=== PATIENT | female | born 1995 | race Caucasian/White ===

== ENCOUNTER 2017-01-03 20:13 | Emergency (ER) | payer MEDICAID ==
[2017-01-03] MEDS ORDERED: SULFAMETH/TRIMETH DS 800/160 MG TABLET PO STA (21:04)
[2017-01-03] MEDS ORDERED: IBUPROFEN 600 MG TABLET PO STA (21:04)
[2017-01-03] MEDS ORDERED: IBUPROFEN 600 MG TABLET PO ONE (21:05)
[2017-01-03] MEDS ORDERED: SULFAMETH/TRIMETH DS 800/160 MG TABLET PO ONE (21:05)
== END 2017-01-03 21:13 | disposition home or self-care (01) ==
DX: N30.00 Acute cystitis without hematuria (principal); R10.2 Pelvic and perineal pain; Z97.5 Presence of (intrauterine) contraceptive device; F17.200 Nicotine dependence, unspecified, uncomplicated
CPT/HCPCS: 81001; 81025; 87210; 87491; 87591; 99283; A9270

== ENCOUNTER 2017-02-26 09:45 | Emergency (ER) | payer MEDICAID ==
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
[2017-02-26 10:40] LABS: BILIRUBIN,URINE NEGATIVE (NEGATIVE)
[2017-02-26 10:46] LABS: BASOPHILS % (AUTO) 0.4 %; EOSINOPHILS # (AUTO) 0.1 10^3/uL (0.0-0.7); EOSINOPHILS % (AUTO) 0.8 %; HCT - HEMATOCRIT 36.5 % (37.0-47.0); HGB - HEMOGLOBIN 12.6 g/dL (12.0-16.0); LYMPHOCYTES # (AUTO) 1.8 10^3/uL (1.5-3.5); LYMPHOCYTES % (AUTO) 21.1 %; MEAN CORPUSCULAR HEMOGLOBIN 29.4 pg (27.0-31.0); MEAN CORPUSCULAR HGB CONC 34.6 g/dL (32.0-36.0); MEAN PLATELET VOLUME 8.4 fL (7.9-10.8); MONOCYTES # (AUTO) 0.6 10^3/uL (0.0-1.0); MONOCYTES % (AUTO) 7.5 %; NEUTROPHILS # (AUTO) 5.9 10^3/uL (1.5-6.6); NEUTROPHILS % (AUTO) 70.2 %; RED BLOOD COUNT 4.29 10^6/uL (4.20-5.40); RED CELL DISTRIBUTION WIDTH 14.3 % (12.0-15.0); UNCORRECTED WHITE BLOOD COUNT 8.4 x10^3/uL; WHITE BLOOD COUNT 8.4 x10^3/uL (4.8-10.8)
[2017-02-26 10:48] LABS: HCG UR QUAL NEGATIVE; UA w/ MICROSCOPIC CHARGE YES
[2017-02-26 11:04] LABS: WBC,URINE 0-3 /HPF (0-5)
[2017-02-26 11:05] LABS: UR CULTURE IF IND INDICATED
[2017-02-26 11:39] VITALS: BP 116/69
== END 2017-02-26 12:15 | disposition home or self-care (01) ==
LOC: ED 09:45
DX: N93.8 Other specified abnormal uterine and vaginal bleeding (principal); J45.909 Unspecified asthma, uncomplicated; F17.200 Nicotine dependence, unspecified, uncomplicated
CPT/HCPCS: 36415; 81001; 81003; 81025; 85025; 87086; 87491; 87591; 99283; 99284

== ENCOUNTER 2017-04-03 11:18 | Emergency (ER) | payer MEDICAID ==
[2017-04-03 11:29] VITALS: BP 120/88
[2017-04-03] MEDS ORDERED: TETANUS/DIPHTHERIA/PERTUSSIS 0.5 ML SYRINGE IM ONE ×2 (11:29→11:41)
[2017-04-03] MEDS ORDERED: LIDOCAINE 1% 2 ML VIAL ONE (11:44)
--- NOTE | 2017-04-03 12:14 | ED Physician Documentation ---
PD HPI UPPER EXT INJURY - Stated complaint Stated Complaint: FINGER LAC - Chief complaint Chief Complaint: Laceration - History obtained from History obtained from: Patient, Family - History of Present Illness Location: Right, Finger (5th) Type of injury: Laceration Where injury occurred: Home Timing - onset: Today Timing - duration: Minutes Timing - details: Abrupt onset, Still present Improved by: Rest, Immobilization Worsened by: Moving, Palpating Associated symptoms: No: Weakness, Numbness, Tingling, Swelling Contributing factors: No: Anticoagulated Similar symptoms before: Has not had sx before Recently seen: Not recently seen - Additonal information Additional information: 21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 Review of Systems Constitutional: denies: Fever Skin: reports: Laceration (s) Musculoskeletal: denies: Neck pain, Back pain Neurologic: denies: Generalized weakness, Focal weakness, Numbness PD PAST MEDICAL HISTORY - Past Medical History Past Medical History: Yes Respiratory: Asthma - Past Surgical History Past Surgical History: No - Present Medications Home Medications: Ambulatory Orders Medication Instructions Recorded Confirmed Albuterol Sulfate [Proair Hfa 8.5 gm IH QID #1 hfa.aer.ad 11/29/15 04/03/17 Inhaler] Norethindrone-Ethinyl Estrad 1 each PO DAILY #10 tablet 02/26/17 04/03/17 [Ovcon-35] - Allergies Allergies/Adverse Reactions: Allergies Allergy/AdvReac Type Severity Reaction Status Date / Time No Known Drug Allergies Allergy Verified 04/03/17 11:30 - Social History Does the pt smoke?: Yes Smoking Status: Current every day smoker Does the pt drink ETOH?: Yes Does the pt have substance abuse?: Yes - Immunizations Immunizations are current?: No Immunizations: TDAP >10years/unknown - POLST Patient has POLST: No PD ED PE NORMAL - Vitals Vital signs reviewed: Yes (hypertensive) - General General: No acute distress, Well developed/nourished - HEENT HEENT: Atraumatic, PERRL - Respiratory Respiratory: No respiratory distress - Derm Derm: Normal color, Warm and dry, No rash - Extremities Extremities: No deformity, No edema, Other (There is a 2cm laceration to the proximal phlagne ulnar surface without involvment of deeper structures and distal n/v is intact. ) - Neuro Neuro: No motor deficit, No sensory deficit - Psych Psych: Normal mood, Normal affect Results - Vitals Vitals: Vital Signs - 24 hr 04/03/17 11:24 Temperature 36.6 C Heart Rate 69 Respiratory 16 Rate Blood Pressure 120/88 H O2 Saturation 98 Oxygen O2 Source Room air Procedures - Laceration (location) fifth finger Length in cm: 2 Wound type: Linear, Clean Neurovascular status: Sensory intact, Motor intact, Vascular intact Tendon involvement: Tendon intact Anesthesia: Lidocaine 1% Wound Preparation: Hibiclens, Irrigated copiously NS, Wound explored, To the base Skin layer closure: Nylon, Interrupted, Size #-0 - enter number (5-0), Sutures - enter # (3) Other: Patient tolerated well, No complications, Neurovascular intact, Dressing applied, Tetanus booster given Complexity: Simple PD MEDICAL DECISION MAKING - ED course Complexity details: reviewed results, re-evaluated patient, considered differential, d/w patient, d/w family ED course: 21 y/o female with a finger laceration from a can lid is sutured and she is given a tetanus booster. Departure - Departure Disposition: 01 Home, Self Care Clinical Impression: Finger laceration Qualifiers: Encounter type: initial encounter Qualified Code(s): S61.219A - Laceration without foreign body of unspecified finger without damage to nail, initial encounter Condition: Stable Instructions: ED Laceration Hand Follow-Up: [facility] [Provider Group]
== END 2017-04-03 12:23 | disposition home or self-care (01) ==
LOC: ED 11:18
DX: S61.216A Laceration without foreign body of right little finger without damage to nail, initial encounter (principal); W26.8XXA Contact with other sharp object(s), not elsewhere classified, initial encounter; Y93.E9 Activity, other interior property and clothing maintenance; Y92.019 Unspecified place in single-family (private) house as the place of occurrence of the external cause; J45.909 Unspecified asthma, uncomplicated; F17.200 Nicotine dependence, unspecified, uncomplicated; Z23 Encounter for immunization
CPT/HCPCS: 12001; 90471; 99282; 99283

== ENCOUNTER 2017-07-23 13:52 | Emergency (ER) | payer MEDICAID ==
[2017-07-23 14:00] VITALS: BP 141/90
--- NOTE | 2017-07-23 15:22 | ED Physician Documentation ---
PD HPI FEMALE - Stated complaint Stated Complaint: FEM - Chief complaint Chief Complaint: General - History obtained from History obtained from: Patient, Friend - History of Present Illness Timing - onset: Yesterday Timing - duration: Days (1) Timing - details: Abrupt onset, Still present Associated symptoms: Other (suspects retained tampon) Contributing factors: Sexually active, Other (on menses) Similar symptoms before: Has not had sx before Recently seen: Not recently seen - Additional information Additional information: 21-year-old female is on her menses and she did have intercourse and does not remember ever removing the tampon. She is worried about a retained tampon today.She is not otherwise having symptoms. Review of Systems Constitutional: denies: Fever Respiratory: denies: Cough GI: denies: Vomiting : denies: Dysuria, Frequency PD PAST MEDICAL HISTORY - Past Medical History Respiratory: Asthma - Past Surgical History Past Surgical History: No - Allergies Allergies/Adverse Reactions: Allergies Allergy/AdvReac Type Severity Reaction Status Date / Time No Known Drug Allergies Allergy Verified 07/23/17 13:58 - Social History Does the pt smoke?: Yes Smoking Status: Current every day smoker Does the pt drink ETOH?: Yes Does the pt have substance abuse?: Yes - Immunizations Immunizations are current?: No Immunizations: TDAP >10years/unknown - POLST Patient has POLST: No PD ED PE NORMAL - Vitals Vital signs reviewed: Yes - General General: Alert and oriented X 3, No acute distress, Well developed/nourished - HEENT HEENT: Atraumatic - Respiratory Respiratory: No respiratory distress - Female Female : Critical Care Physician present (Rebecca), Other (menstral blood is present in the vault. The area is examined and there is no evidence of retained tampon. ) - Derm Derm: Normal color, Warm and dry, No rash - Extremities Extremities: No deformity, No edema - Neuro Neuro: No motor deficit, No sensory deficit - Psych Psych: Normal mood, Normal affect Results - Vitals Vitals: Vital Signs - 24 hr 07/23/17 13:54 Temperature 36.2 C L Heart Rate 86 Respiratory 18 Rate Blood Pressure 141/90 H O2 Saturation 99 Oxygen O2 Source Room air PD MEDICAL DECISION MAKING - ED course Complexity details: considered differential, d/w patient ED course: 21-year-old female who thought that she might have a retained tampon does not have retained tampon. She is otherwise asymptomatic. Departure - Departure Disposition: 01 Home, Self Care Clinical Impression: (Ruled Out): Retained tampon Condition: Stable Instructions: Tampons Sanitary Pads Teen Follow-Up: [facility] [Provider Group]
== END 2017-07-23 15:36 | disposition home or self-care (01) ==
LOC: ED 13:52
DX: Z71.1 Person with feared health complaint in whom no diagnosis is made (principal)
CPT/HCPCS: 99282; 99283

== ENCOUNTER 2017-12-23 17:25 | Emergency (ER) | payer MEDICAID ==
--- NOTE | 2017-12-23 19:36 | ED Physician Documentation ---
PD HPI SKIN - Stated complaint Stated Complaint: LUMP - Chief complaint Chief Complaint: General - History obtained from History obtained from: Patient - History of Present Illness Timing - duration: Days Timing - details: Gradual onset, Waxing and waning Location: Other (rectal area pain with BM and wiping. Pain today with sitting as well. No abd pain.) Quality / character: Painful Associated symptoms: No: Fever, Myalgias, Abd pain, N/V/D Similar symptoms before: Has not had sx before Recently seen: Not recently seen Review of Systems Constitutional: denies: Fever, Chills GI: denies: Abdominal Pain, Nausea, Vomiting, Constipation, Diarrhea : denies: Dysuria, Frequency PD PAST MEDICAL HISTORY - Past Medical History Respiratory: Asthma - Past Surgical History Past Surgical History: No - Present Medications Home Medications: Ambulatory Orders Medication Instructions Recorded Confirmed Docusate Sodium 100 mg PO DAILY #30 capsule 12/23/17 Hydrocortisone Acetate [Anucort-Hc] 25 mg RC DAILY #5 supp.rect 12/23/17 Tramadol HCl 50 mg PO Q6H PRN #15 tablet 12/23/17 - Allergies Allergies/Adverse Reactions: Allergies Allergy/AdvReac Type Severity Reaction Status Date / Time No Known Drug Allergies Allergy Verified 12/23/17 17:41 - Social History Does the pt smoke?: Yes Smoking Status: Current every day smoker Does the pt drink ETOH?: Yes Does the pt have substance abuse?: Yes - Immunizations Immunizations are current?: No Immunizations: TDAP >10years/unknown - POLST Patient has POLST: No PD ED PE NORMAL - Vitals Vital signs reviewed: Yes - General General: Alert and oriented X 3, No acute distress, Well developed/nourished - Abdomen Abdomen: Soft, Non tender - Female Female : Deferred - Rectal Rectal: Other (nurse in room as well; there are some nonthrombosed external hemorrhoids and then some swelling just at anal verge c/w some internal hemorrhoids too. No perirectal abscess nor swelling/tenderness. ) - Back Back: No CVA TTP - Derm Derm: Normal color, Warm and dry Results - Vitals Vitals: Oxygen O2 Source Room air PD MEDICAL DECISION MAKING - ED course Complexity details: considered differential, d/w patient Departure - Departure Disposition: 01 Home, Self Care Clinical Impression: Inflamed internal hemorrhoid Condition: Stable Record reviewed to determine appropriate education?: Yes Instructions: ANUSOL Suppositories, ED Hemorrhoids Prescriptions: Docusate Sodium 100 mg PO DAILY #30 capsule Hydrocortisone Acetate [Anucort-Hc] 25 mg RC DAILY #5 supp.rect Tramadol HCl 50 mg PO Q6H PRN #15 tablet PRN Reason: Pain Comments: Drink lots of fluids. Use daily stool softener to keep things soft and less pressure on the hemorrhoids. Anusol rectal suppository daily for 5 days for treatment of the hemorrhoid. Use Tylenol or ibuprofen if needed for pain. Add tramadol if needed. Recheck if not improved over the next several days. Discharge Date/Time: 12/23/17 20:06
[2017-12-23] MEDS ORDERED: HYDROcod/ACETAM 5/325 MG TABLET PO STA (19:50)
[2017-12-23] MEDS ORDERED: DOCUSATE SODIUM 100 MG CAPSULE PO STA (19:50)
[2017-12-23] MEDS ORDERED: HYDROCORTISONE 25 MG SUPPOSITORY PR STA (19:50)
[2017-12-23 20:06] VITALS: BP 139/86
== END 2017-12-23 20:06 | disposition home or self-care (01) ==
LOC: ED 17:25
DX: K64.8 Other hemorrhoids (principal); F17.200 Nicotine dependence, unspecified, uncomplicated
CPT/HCPCS: 99283; A9270; J3490

== ENCOUNTER 2018-02-21 03:04 | Outpatient (CLI) | payer MEDICAID | END 2018-02-21 03:05 | disposition critical access hospital (66) | LOC: EMS 03:04 | PROVIDERS: ATTEND Surgery | DX: R51 Headache (principal); M54.9 Dorsalgia, unspecified; R07.9 Chest pain, unspecified; S10.93XA Contusion of unspecified part of neck, initial encounter; Y04.2XXA Assault by strike against or bumped into by another person, initial encounter; Y92.89 Other specified places as the place of occurrence of the external cause | CPT/HCPCS: A0425; A0429 ==

== ENCOUNTER 2018-02-21 03:39 | Emergency (ER) | payer MEDICAID ==
[2018-02-21 04:13] LABS: HCG UR QUAL NEGATIVE
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
--- NOTE | 2018-02-21 04:45 | CT Preliminary Report ---
Exam: CT HEAD W/O IMPRESSION: 1. No acute intracranial process. 2. Mild right frontal scalp swelling without calvarial fracture. [facility] SITE ID: [id number]
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
--- NOTE | 2018-02-21 04:54 | CT Preliminary Report ---
Exam: CT CERVICAL SPINE W/O IMPRESSION: Normal cervical spine CT. [facility] SITE ID: [id number]
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
[2018-02-21 05:48] VITALS: BP 133/73
== END 2018-02-21 05:48 | disposition home or self-care (01) ==
LOC: EDUNIT# → ED 03:39
DX: J45.909 Unspecified asthma, uncomplicated (principal); F17.200 Nicotine dependence, unspecified, uncomplicated; S10.93XA Contusion of unspecified part of neck, initial encounter; Y04.2XXA Assault by strike against or bumped into by another person, initial encounter; Y92.488 Other paved roadways as the place of occurrence of the external cause
CPT/HCPCS: 70450; 72125; 81025; 99283; 99284

== ENCOUNTER 2018-09-18 18:41 | Emergency (ER) | payer MEDICAID ==
[2018-09-18 19:31] LABS: BASOPHILS % (AUTO) 0.3 %; EOSINOPHILS % (AUTO) 0.2 %; HGB - HEMOGLOBIN 12.9 g/dL (12.0-16.0); LYMPHOCYTES # (AUTO) 1.6 10^3/uL (1.5-3.5); LYMPHOCYTES % (AUTO) 12.6 %; MEAN CORPUSCULAR HEMOGLOBIN 31.5 pg (27.0-31.0); MEAN CORPUSCULAR VOLUME 89.9 fL (81.0-99.0); MONOCYTES % (AUTO) 8.3 %; NEUTROPHILS # (AUTO) 9.8 10^3/uL (1.5-6.6); NEUTROPHILS % (AUTO) 78.6 %; PLT - PLATELET COUNT 320 10^3/uL (130-450); RED BLOOD COUNT 4.11 10^6/uL (4.20-5.40); RED CELL DISTRIBUTION WIDTH 12.4 % (12.0-15.0); WHITE BLOOD COUNT 12.5 x10^3/uL (4.8-10.8)
[2018-09-18 19:46] LABS: ALBUMIN 4.4 g/dL (3.2-5.5); ALBUMIN/GLOBULIN RATIO 0.8 (1.0-2.2); BILIRUBIN,TOTAL 0.7 mg/dL (0.2-1.0); CALCIUM 9.1 mg/dL (8.5-10.3); CREATININE 0.8 mg/dL (0.4-1.0); TOTAL PROTEIN 9.6 g/dL (6.7-8.2)
[2018-09-18 21:10] VITALS: BP 144/108
[2018-09-18 21:14] LABS: BILIRUBIN,URINE NEGATIVE (NEGATIVE); GLUCOSE, URINE (UA) NEGATIVE (NEGATIVE); KETONES,URINE (UA) >=80 mg/dL (NEGATIVE); LEUKOCYTE ESTERASE, URINE TRACE (NEGATIVE); NITRITE,URINE POSITIVE (NEGATIVE); OCCULT BLOOD,URINE MODERATE (NEGATIVE); PROTEIN,URINE TRACE mg/dL (NEGATIVE); UROBILINOGEN,URINE 1 (NORMAL) E.U./dL (NORMAL)
[2018-09-18 21:16] LABS: CLARITY,URINE HAZY (CLEAR); HCG UR QUAL NEGATIVE
[2018-09-18 21:25] LABS: BACTERIA,URINE Many /HPF (None Seen); RBC,URINE 0-5 /HPF (0-5); SQUAMOUS EPITHELIAL CELL,UR MOD Squamous (<= Few)
[2018-09-18] MEDS ORDERED: cefTRIAXone 1 GM VIAL IVP STA (21:29)
--- NOTE | 2018-09-18 21:32 | ED Physician Documentation ---
PD HPI ABD PAIN - Stated complaint Stated Complaint: SIDE/BACK PX - Chief complaint Chief Complaint: Abd Pain - History obtained from History obtained from: Patient - History of Present Illness Timing - onset: How many weeks ago (1) Timing - duration: Weeks (1) Timing - details: Gradual onset Pain level max: 0 Pain level now: 0 Quality: No: Cramping, Aching, Sharp, Dull, Stabbing, Throbbing, Indigestion, Fullness/distended, Pain Location: RUQ, Other (R flank) Improved by: Other (nothing) Worsened by: Other (nothing) Associated symptoms: Nausea, Constipation, Dysuria. No: Fever, Vomiting, Hematemesis, Diarrhea, Melena, Hematochezia, Hematuria, Chest pain, Dizzy, Near syncope / syncope, Vaginal bleeding, Vaginal dc Similar symptoms before: Has not had sx before Recently seen: Not recently seen Review of Systems Ten Systems: 10 systems reviewed and negative Constitutional: denies: Fever, Chills Ears: denies: Ear pain Nose: denies: Rhinorrhea / runny nose, Congestion Cardiac: denies: Chest pain / pressure Respiratory: denies: Cough GI: denies: Abdominal Pain, Nausea, Vomiting, Diarrhea : reports: Dysuria, Frequency, Hesitancy. 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 - Present Medications Home Medications: Ambulatory Orders Medication Instructions Recorded Confirmed Albuterol 2.5 mg INH Q4H PRN 02/21/18 02/21/18 Cefdinir 300 mg PO BID #20 capsule 09/18/18 Ibuprofen [Motrin] 800 mg PO Q8H PRN #30 tablet 09/18/18 - Allergies Allergies/Adverse Reactions: Allergies Allergy/AdvReac Type Severity Reaction Status Date / Time No Known Drug Allergies Allergy Verified 09/18/18 18:47 - Social History Does the pt smoke?: Yes Smoking Status: Current every day smoker Does the pt drink ETOH?: Yes Does the pt have substance abuse?: No Substance Use and Type: Marijuana - Immunizations Immunizations are current?: Yes Immunizations: TDAP current <10years - POLST Patient has POLST: No PD ED PE NORMAL - Vitals Vital signs reviewed: Yes - General General: Alert and oriented X 3, No acute distress - HEENT HEENT: Moist mucous membranes - Neck Neck: Supple, no meningeal sign - Cardiac Cardiac: RRR, Strong equal pulses - Respiratory Respiratory: No respiratory distress, Clear bilaterally - Abdomen Abdomen: Soft, Other (TTP over the RUQ and R flank.) - Back Back: No spinal TTP, Other (R CVAT) - Derm Derm: Warm and dry, No rash - Extremities Extremities: No edema, No calf tenderness / cord - Neuro Neuro: Alert and oriented X 3 - Psych Psych: Normal mood, Normal affect Results - Vitals Vitals: Vital Signs - 24 hr 09/18/18 09/18/18 09/18/18 18:44 19:52 21:09 Temperature 36.4 C L Heart Rate 137 H 107 H 110 H Respiratory 20 15 Rate Blood Pressure 144/61 H 144/108 H O2 Saturation 100 99 100 Oxygen O2 Source Room air - Labs Labs: Laboratory Tests 09/18/18 09/18/18 09/18/18 19:20 19:20 21:00 WBC 12.5 H RBC 4.11 L Hgb 12.9 Hct 36.9 L MCV 89.9 MCH 31.5 H MCHC 35.0 RDW 12.4 Plt Count 320 MPV 7.0 L Neut # (Auto) 9.8 H Lymph # (Auto) 1.6 [place] # (Auto) 1.0 Eos # (Auto) 0.0 Baso # (Auto) 0.0 Absolute Nucleated RBC 0.00 Nucleated RBC % 0.0 Sodium 135 Potassium 2.8 L Chloride 93 L Carbon Dioxide 30 Anion Gap 12.0 BUN 7 Creatinine 0.8 Estimated GFR (MDRD) 91 Glucose 95 Calcium 9.1 Total Bilirubin 0.7 AST 19 ALT 24 Alkaline Phosphatase 70 Total Protein 9.6 H Albumin 4.4 Globulin 5.2 H Albumin/Globulin Ratio 0.8 L Lipase 17 L Urine Color YELLOW Urine Clarity HAZY Urine pH 8.0 H Ur Specific [place] 1.020 Urine Protein TRACE Urine Glucose (UA) NEGATIVE Urine Ketones >=80 H Urine Occult Blood MODERATE H Urine Nitrite POSITIVE H Urine Bilirubin NEGATIVE Urine Urobilinogen 1 (NORMAL) Ur Leukocyte Esterase TRACE H Urine RBC 0-5 Urine WBC >25 H Ur Squamous Epith Cells MOD Squamous H Urine Bacteria Many H Ur Microscopic Review INDICATED Urine Culture Comments NOT INDICATED Urine HCG, Qual NEGATIVE - Rads (name of study) RUQ US Radiology: Prelim report reviewed, EMP read contemporaneously, See rad report (normal RUQ US) PD MEDICAL DECISION MAKING - ED course Complexity details: reviewed results, re-evaluated patient, considered differential, d/w patient ED course: 23 year old female with pyelonephritis. given rocephin and toradol. will place on cefdinir for home. Normal right upper quadrant ultrasound. Patient is well- appearing, nontoxic. Afebrile. Patient counseled regarding signs and symptoms for which I believe and urgent re-evaluation would be necessary. Patient with good understanding of and agreement to plan and is comfortable going home at this time This document was made in part using voice recognition software. While efforts are made to proofread this document, sound alike and grammatical errors may occur. Departure - Departure Disposition: 01 Home, Self Care Clinical Impression: Pyelonephritis Condition: Good Instructions: ED Kidney Infec Female Follow-Up: your,doctor in 3 days for recheck [Other] Prescriptions: Cefdinir 300 mg PO BID #20 capsule Ibuprofen [Motrin] 800 mg PO Q8H PRN #30 tablet PRN Reason: PAIN &/OR FEVER Comments: Take all antibiotics until gone. Return if you worsen. This should improve over the next few days.
--- NOTE | 2018-09-18 21:34 | Ultrasound Report ---
Reason: R upper abd pain Procedure Date: 09/18/2018 Accession Number: [id number] / [id number] Procedure: US - Abdomen Limited CPT Code: FULL RESULT: EXAM: ABDOMEN ULTRASOUND LIMITED, RUQ EXAM DATE: 09/18/2018 08:52 PM. CLINICAL HISTORY: R upper abd pain. COMPARISON: None. TECHNIQUE: Real-time scanning was performed with static images obtained. FINDINGS: Liver: Normal in size and echotexture. 14 cm. Main portal vein flow: Hepatopetal. Gallbladder: Normal. No stones, wall thickening, or sonographic Robles's sign. Biliary System: CBD measures 2.1 mm. No intrahepatic or extrahepatic ductal dilatation. Right kidney: 12.1 cm unremarkable IMPRESSION: Normal. No cholelithiasis or cholecystitis. RADIA
[2018-09-18] MEDS ORDERED: LIDOCAINE 1% 2 ML VIAL SUBQ ONE (21:37)
[2018-09-18] MEDS ORDERED: cefTRIAXone 1 GM VIAL IM STA (21:37)
[2018-09-18] MEDS ORDERED: KETOROLAC 60 MG/2 ML VIAL IM STA (21:37)
== END 2018-09-18 22:08 | disposition home or self-care (01) ==
LOC: ED 18:41
DX: N12 Tubulo-interstitial nephritis, not specified as acute or chronic (principal); F17.200 Nicotine dependence, unspecified, uncomplicated
CPT/HCPCS: 36415; 76705; 80053; 81001; 81003; 81025; 83690; 85025; 87086; 96372; 99283; 99284

== ENCOUNTER 2018-12-03 08:00 | Outpatient (CLI) | payer MEDICAID | END 2018-12-03 23:59 | disposition home or self-care (01) | LOC: LAB.R 08:00 | PROVIDERS: ATTEND Nurse Practitioner Obstetrics & Gynecology | DX: Z11.3 Encounter for screening for infections with a predominantly sexual mode of transmission (principal) | CPT/HCPCS: 87491; 87591 ==

== ENCOUNTER 2018-12-04 12:16 | Outpatient (CLI) | payer MEDICAID ==
[2018-12-05 13:02] LABS: HEPATITIS C ANTIBODY NON-REACTIVE (NON-REACTIVE)
[2018-12-05 14:12] LABS: HIV AG/AB 4TH GEN NON-REACTIVE (NON-REACTIVE)
[2018-12-06 13:21] LABS: HSV 2 IGG TYPE SPECIFIC AB <0.90 index
== END 2018-12-04 12:17 | disposition home or self-care (01) ==
LOC: LAB 12:16
PROVIDERS: ATTEND Nurse Practitioner Obstetrics & Gynecology
DX: Z11.3 Encounter for screening for infections with a predominantly sexual mode of transmission (principal)
CPT/HCPCS: 36415; 81599; 86317; 86592; 86695; 86696; 86803; 87389

== ENCOUNTER 2019-01-12 16:19 | Outpatient (CLI) | payer MEDICAID | END 2019-01-12 16:20 | disposition home or self-care (01) | LOC: LAB 16:19 | PROVIDERS: ATTEND Registered Nurse | DX: O46.91 Antepartum hemorrhage, unspecified, first trimester (principal) | CPT/HCPCS: 36415; 84702; 86900; 86901 ==

== ENCOUNTER 2023-01-02 23:09 | Emergency (ER) | payer SELFPAY ==
--- NOTE | 2023-01-03 00:16 | ED Physician Documentation ---
History of Present Illness - Stated complaint Stated Complaint: SWOLLEN FEET - Chief complaint Chief Complaint: Cardiac - History obtained from History obtained from: Patient - Additonal information Additional information: HPI from patient. she c/o bilateral LE edema for 1-2 weeks. No inciting event nor circumstances. There are no apparent exacerbating nor ameliorating factors. She denies h/o similar symptoms in the past. Denies chest pain, denies fever, denies dyspnea. No recent long car trips nor plane travel. Patient presents with a friend who is in adjacent bed registered as ED patient for unrelated c/o Review of Systems Constitutional: denies: Fever, Chills, Sweats Cardiac: reports: Pedal edema. 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 - Present Medications Home Medications: Ambulatory Orders Medication Instructions Recorded Confirmed Albuterol 2.5 mg INH Q4H PRN 02/21/18 02/21/18 - Allergies Allergies/Adverse Reactions: Allergies Allergy/AdvReac Type Severity Reaction Status Date / Time No Known Drug Allergies Allergy Verified 01/02/23 23:26 - Social History Does the pt smoke?: Yes Smoking Status: Current every day smoker Does the pt drink ETOH?: Yes Does the pt have substance abuse?: No - Immunizations Immunizations are current?: No Immunizations: TDAP current <10years - POLST Patient has POLST: No PD ED PE NORMAL - Vitals Vital signs reviewed: Yes - General General: Alert and oriented X 3, No acute distress, Well developed/nourished PD ED PE EXPANDED - Extremities Extremities: Pedal edema bilateral (1+ BLE pitting edema at ankles and feet, symmetric. LTS intact in both feet and strong DP/PT pulses, brisk capillary refill in toes bilaterally) Results - Vitals Vitals: Oxygen O2 Source Room air - Rads (name of study) BLE venous doppler US Relevant Findings:: Prelim report reviewed, See rad report PD Medical Decision Making - ED course Complexity details: reviewed results, re-evaluated patient, considered meka carlsonzach, d/w patient ED course: Unremarkable BLE US; specifically, no evidence of DVT. Cause of her peripheral edema is not apparent at this time. I advised her that she might benefit from further testing but that at this time, such testing would be appropriate for outpatient setting. Along these lines, I advised her to follow up with PMD , next available appointment. I advised her to try to keep her legs elevated when at rest during the day, to minimize salt intake, and to consider OTC compression socks. Return precautions discussed. Departure - Departure Disposition: Home, Self Care Clinical Impression: Peripheral edema Condition: Good Instructions: ED Edema Legs Bilateral Comments: An ultrasound was performed tonight on your legs and these do not show any evidence of the cause of the swelling. Specifically, they do not show any evidence of a deep venous thrombosis (DVT, or blood clot). You need to follow-up with an outpatient primary care provider for further testing. Contact your insurance carrier to ask about options for local primary care providers. Once you have this information, contact your primary care provider and make the next available appointment. In the meantime, as we discussed, keeping your legs elevated when at rest can help reduce the amount of swelling. Also, there are many different brands of compression socks available [id number] at most pharmacies. Reducing or eliminating salt from your diet as much as possible can also reduce the swelling of the legs. Certainly, if you worsen in any way, you can return to the emergency department for reevaluation. Discharge Date/Time: 01/03/23 02:20
--- NOTE | 2023-01-03 01:35 | Ultrasound Report ---
PROCEDURE: Duplex Ext Veins Bilateral INDICATIONS: Atraumatic bilateral lower extremity swelling TECHNIQUE: Real-time imaging, as well as color and pulse Doppler interrogation, were performed of the deep veins of both legs from the inguinal ligament to the popliteal fossa. COMPARISON: None. FINDINGS: The deep veins are normally compressible, and free of intraluminal thrombus. Color and pu lse Doppler demonstrate normal phasic intravascular flow. There is normal augmentation response to d istal compression maneuver. IMPRESSION: 1. No evidence of deep venous thrombosis in the right or left lower extremity. Reviewed by: Cristo Jackson MD on 01/03/2023 1:33 AM PDT Approved by: Cristo Jackson MD on 01/03/2023 1:33 AM PDT Station ID: [id number]
[2023-01-03 02:20] VITALS: BP 112/70
== END 2023-01-03 02:20 | disposition home or self-care (01) ==
LOC: ED 23:09
DX: R60.9 Edema, unspecified (principal); F17.200 Nicotine dependence, unspecified, uncomplicated
CPT/HCPCS: 93970; 99283; 99284

== ENCOUNTER 2023-02-02 19:47 | Emergency (ER) | payer MEDICAID, OTHER ==
[2023-02-02 20:18] LABS: RAPID STREP SCREEN Negative (Negative)
[2023-02-02] MEDS ORDERED: DEXAMETHASONE 10 MG/ML VIAL PO STA (21:42)
[2023-02-02] MEDS ORDERED: PENICILLIN VK 250 MG TABLET PO STA (21:42)
[2023-02-02] MEDS ORDERED: CHERRY SYRUP 10 ML UDC PO ONE (21:42)
[2023-02-02] MEDS ORDERED: IBUPROFEN 800 MG TABLET PO STA (21:42)
--- NOTE | 2023-02-02 21:48 | ED Physician Documentation ---
History of Present Illness - Stated complaint Stated Complaint: THROAT PX - Chief complaint Chief Complaint: Heent - History obtained from History obtained from: Patient - History of Present Illness Timing: How many days ago (2) Pain level max: 8 Pain level now: 8 - Additonal information Additional information: 27-year-old female presents to the emergency department for sore throat for the past 2 days. Has had subjective fever and chills. Mild dry cough. No nausea or vomiting. Denies any possibility of . Worse with eating and drinking, nothing makes it better. 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 - Present Medications Home Medications: Ambulatory Orders Medication Instructions Recorded Confirmed Ibuprofen [Motrin] 800 mg PO Q8H PRN #30 tablet 02/02/23 Penicillin V Potassium 500 mg PO Q6HR #40 tablet 02/02/23 predniSONE [Deltasone] 40 mg PO DAILY #10 tablet 02/02/23 - Allergies Allergies/Adverse Reactions: Allergies Allergy/AdvReac Type Severity Reaction Status Date / Time No Known Drug Allergies Allergy Verified 02/02/23 19:59 - Social History Does the pt smoke?: Yes Smoking Status: Current every day smoker Does the pt drink ETOH?: Yes Does the pt have substance abuse?: No - Immunizations Immunizations are current?: No Immunizations: TDAP current <10years - POLST Patient has POLST: No PD ED PE NORMAL - Vitals Vital signs reviewed: Yes - General General: Alert and oriented X 3, No acute distress - HEENT HEENT: Ears normal, Moist mucous membranes, Other (Posterior oropharyngeal erythema and tonsillar exudates bilaterally. Uvula midline. Normal phonation. No trismus.) - Neck Neck: Supple, no meningeal sign, Other (Shotty anterior lymphadenopathy) - Cardiac Cardiac: RRR, Strong equal pulses - Respiratory Respiratory: No respiratory distress, Clear bilaterally - Abdomen Abdomen: Soft, Non tender, Non distended - Derm Derm: Warm and dry, No rash - Neuro Neuro: Alert and oriented X 3 - Psych Psych: Normal mood, Normal affect Results - Vitals Vitals: Vital Signs - 24 hr 02/02/23 02/02/23 19:51 21:59 Temperature 37.2 C 37.0 C Heart Rate 112 H 88 Respiratory 16 16 Rate Blood Pressure 119/83 H 122/80 O2 Saturation 100 100 Oxygen O2 Source Room air - Labs Labs: Laboratory Tests 02/02/23 19:50 Group A Strep Rapid Negative PD Medical Decision Making - ED course Complexity details: considered differential, d/w patient ED course: Patient is well-appearing, nontoxic. Afebrile. No stridor. No respiratory distress. Rapid strep is negative, but exam is consistent with strep pharyngitis, therefore we will treat the patient with antibiotics. Given dexamethasone as well. Encourage p.o. hydration. Encourage close follow-up with her doctor. No evidence of peritonsillar abscess or retropharyngeal abscess at this time. Patient counseled regarding signs and symptoms for which I believe and urgent re-evaluation would be necessary. Patient with good understanding of and agreement to plan and is comfortable going home at this time This document was made in part using voice recognition software. While efforts are made to proofread this document, sound alike and grammatical errors may occur. Departure - Departure Disposition: 01 Home, Self Care Clinical Impression: Pharyngitis Qualifiers: Pharyngitis/tonsillitis etiology: unspecified etiology Qualified Code(s): J02.9 - Acute pharyngitis, unspecified Condition: Good Instructions: ED Strep Pharyngitis Poss Follow-Up: your,doctor in 3-4 days if not better [Other] Prescriptions: Penicillin V Potassium 500 mg PO Q6HR #40 tablet predniSONE [Deltasone] 40 mg PO DAILY #10 tablet Ibuprofen [Motrin] 800 mg PO Q8H PRN #30 tablet PRN Reason: PAIN &/OR FEVER Comments: Your prescriptions were sent to [facility] in [place]. Please take all antibi otics until gone. The steroids will help with the swelling and pain. Please return if you worsen. This should improve over the next 24 to 48 hours. Make sure you are drinking plenty of water. Eating cool items such as popsicles can help with the swelling and pain as well. Discharge Date/Time: 02/02/23 21:59
[2023-02-02 22:00] VITALS: BP 122/80
== END 2023-02-02 21:59 | disposition home or self-care (01) ==
LOC: ED 19:47
DX: J02.9 Acute pharyngitis, unspecified (principal); F17.200 Nicotine dependence, unspecified, uncomplicated
CPT/HCPCS: 87070; 87430; 99283; A9270